=== PATIENT | male | born 1955 ===

== ENCOUNTER 2021-10-27 10:00 | Outpatient (CLI) | payer MEDICARE, SELFPAY | END 2021-10-27 10:01 | disposition home or self-care (01) | PROVIDERS: Visit Provider Urology | DX: R97.20 Elevated prostate specific antigen [PSA] (principal) | CPT/HCPCS: 36415; 81003; 84153 ==

== ENCOUNTER 2022-04-28 09:42 | Outpatient (CLI) | payer MEDICARE, SELFPAY | END 2022-04-28 09:43 | disposition home or self-care (01) | PROVIDERS: Visit Provider Urology | DX: N40.1 Benign prostatic hyperplasia with lower urinary tract symptoms (principal); N13.8 Other obstructive and reflux uropathy; R97.20 Elevated prostate specific antigen [PSA] | CPT/HCPCS: 51798; 81003; 84153; 99213 ==

== ENCOUNTER → 2022-10-27 07:43 | Outpatient (BNVA) | payer MEDICARE, SELFPAY | PROVIDERS: Visit Provider Urology | DX: N40.1 Benign prostatic hyperplasia with lower urinary tract symptoms (principal); R97.20 Elevated prostate specific antigen [PSA]; N13.8 Other obstructive and reflux uropathy | CPT/HCPCS: 99213 ==

== ENCOUNTER 2024-07-05 08:17 | Outpatient (CLI) | payer SELFPAY ==
[2024-07-05 09:10] LABS: Charge for UA Resulting for Rev
[2024-07-05 09:13] LABS: Basophils # 0.1 10^3/uL (0.0-0.1); Basophils % 0.7 %; Eosinophils # 0.2 10^3/uL (0.0-0.8); Hematocrit 42.3 % (37-53); Lymphocytes % 23.3 %; Mean Corpuscular HGB Conc 31.7 g/dL (30-55); Mean Corpuscular Hemoglobin 28.5 pg (27-33); Mean Corpuscular Volume 89.8 fl (82-101); Mean Platelet Volume 9.2 fL (7.4-10.4); Monocytes # 0.9 10^3/uL (0.2-0.9); Neutrophils # 5.51 10^3/uL (1.8-7.7); Neutrophils % 63.3 %; Nucleated Red Blood Cells % 0 %; Platelet Count 271 10^3/cmm (157-399); Red Blood Count 4.71 10^6/uL (3.85-5.65)
[2024-07-05 09:24] LABS: Bacteria Urine None Seen /hpf; Hyaline Casts Urine 0.81 /lpf; RBC Urine 0-2 /hpf (0-2); Squamous Epithelial Cell Urine 0-5 /hpf (0-5); WBC Urine 0-5 /hpf (0-5)
[2024-07-05 09:40] LABS: Anion Gap 19.9 (5-19); Blood Urea Nitrogen 49 mg/dL (8-23); Calcium 8.8 mg/dL (8.5-10.5); Carbon Dioxide 19 mmol/L (22-29); Chloride 105 mmol/L (98-107); Glomerular Filtration Rate 46.4 mL/min (90-130); Glucose 147 mg/dL (65-115); Osmolality Calculated 304 mOsm/kg (285-295); Potassium 4.9 mmol/L (3.5-5.1); Sodium 139 mmol/L (136-145)
[2024-07-05 11:37] LABS: Bilirubin Urine Negative (Negative); Blood Urine Negative (Negative); Glucose Urine UA 3+ (Normal); Ketones Urine Negative (Negative); Leukocyte Esterase Urine Negative (Negative); Nitrate Urine Negative (Negative); Protein Urine Negative (Negative); Specific Gravity, Urine 1.023 (1.005-1.030); Urine Color Yellow (Yellow); Urobilinogen Urine 0.2 mg/dL (Negative)
[2024-07-05 11:39] LABS: Urine Appearance Clear (CLEAR)
== END 2024-07-05 08:18 | disposition home or self-care (01) ==
LOC: LAB 08:23
PROVIDERS: PCP Urology; Visit Provider Urology
DX: Z01.818 Encounter for other preprocedural examination (principal); E11.9 Type 2 diabetes mellitus without complications
CPT/HCPCS: 36415; 80048; 81003; 81015; 85025

== ENCOUNTER → 2024-07-06 14:42 | Outpatient (BNVA) | payer MEDICARE, SELFPAY | PROVIDERS: PCP Urology; Visit Provider Internal Medicine | DX: Z01.818 Encounter for other preprocedural examination (principal); E11.9 Type 2 diabetes mellitus without complications | CPT/HCPCS: 93005 ==

== ENCOUNTER 2024-08-24 07:34 | Outpatient (CLI) | payer MEDICARE, SELFPAY ==
--- NOTE | 2024-08-24 08:12 | NM_ITS ---
WS: [id number] NUCLEAR MEDICINE WHOLE BODY BONE SCAN HISTORY: PROSTATE CA, LEFT hip pain with prior replacement. COMPARISON: LEFT hip 07/04/2018. TECHNIQUE: The patient was injected with 25.4 mCi of Technetium 99m HDP and serial whole-body scintig aspen have been performed with anterior and posterior images. Photopenic defect at the LEFT hip from the prior orthopedic replacement. There is no increased uptake . Normal appearance of the RIGHT hip and SI joints also. Moderate RIGHT and mild LEFT AC joint arthritis and bilateral SC joint arthropathy. Moderate bilatera l uptake involving the knees from arthritis. No rib abnormalities. There is a tiny focus of intermedi ate uptake involving the RIGHT 11th pedicle which is probably arthropathy. Normal soft tissue uptake. Kidneys are both identified. Additional degenerative changes involving the ankles. NM/NM bone scan whole body* [id number] IMPRESSION: 1. Distribution of abnormal uptake is most consistent with arthropathy. 2. No convincing pattern for metastatic bone disease. 3. No increased uptake at the LEFT hip.
== END 2024-08-24 07:35 | disposition home or self-care (01) ==
PROVIDERS: PCP Family Medicine; Visit Provider Urology
DX: C61 Malignant neoplasm of prostate (principal); M16.11 Unilateral primary osteoarthritis, right hip; Z96.642 Presence of left artificial hip joint
CPT/HCPCS: 78306; A9561

== ENCOUNTER 2024-11-21 11:23 | Outpatient (CLI) | payer MEDICARE, SELFPAY ==
--- NOTE | 2024-11-21 11:31 | XR_ITS ---
WS: [id number] CHEST 2 VIEWS HISTORY: wheezing COMPARISON: 12/07/2018 Lungs: New mild diffuse interstitial thickening and fullness in the hilar regions. Greater interstiti al thickening on the RIGHT. No dense areas of consolidation. Cardiac size: Normal. Mediastinum/Aorta: Normal mediastinum. Bones: Mild increase in thoracic kyphosis. XR/XR chest 2V* [id number] IMPRESSION: 1. Mild diffuse interstitial thickening but greatest throughout the RIGHT lung . Differential includes pneumonitis and mild asymmetric interstitial edema. The re is additional mild fullness in the hilar regions. Recommend follow-up chest radiograph after treatment for acute bronchitis. 2. No pneumonia.
== END 2024-11-21 11:24 | disposition home or self-care (01) ==
LOC: RAD 11:24
PROVIDERS: PCP Family Medicine; Visit Provider Family Medicine
DX: R06.02 Shortness of breath (principal); J84.9 Interstitial pulmonary disease, unspecified; R91.8 Other nonspecific abnormal finding of lung field; M40.294 Other kyphosis, thoracic region
CPT/HCPCS: 71046

== ENCOUNTER 2024-11-29 11:40 | Outpatient (CLI) | payer MEDICARE, SELFPAY ==
--- NOTE | 2024-11-29 11:43 | XR_ITS ---
WS: [id number] Chest 2 views, 11/29/2024 Clinical Data: WHEEZING Comparison: Two-view chest, 11/21/2024 Findings: No nodules, masses or effusions are seen. The heart is normal. The pulmonary vascularity is not increased. No pneumonia or pneumothorax is seen. The aortic arch shows mild tortuosity. XR/XR chest 2V* [id number] Impression: Atherosclerosis.
== END 2024-11-29 11:41 | disposition home or self-care (01) ==
LOC: RAD 11:41
PROVIDERS: PCP Family Medicine; Visit Provider Family Medicine
DX: J20.9 Acute bronchitis, unspecified (principal); I70.0 Atherosclerosis of aorta; Q25.46 Tortuous aortic arch
CPT/HCPCS: 71046

== ENCOUNTER 2024-12-06 06:55 | Outpatient (CLI) | payer MEDICARE, SELFPAY | END 2024-12-06 06:56 | disposition home or self-care (01) | PROVIDERS: PCP Family Medicine; Visit Provider Family Medicine | DX: R06.02 Shortness of breath (principal) | CPT/HCPCS: 94010; 94726; 94729 ==

== ENCOUNTER 2025-02-05 14:04 | Oncology outpatient (recurring) (ONCR) | payer MEDICARE, SELFPAY ==
--- NOTE | 2025-01-19 10:00 | N.ONRAD NP_ITS ---
Radiation Oncology New Patient Visit Patient: Alfredo Davidson MR#: [id number] : 1955 Age: 69 Sex: Male Dictated by: Dr. Clarisa Jensen Date of Service: 01/19/2025 Referring Physician(s) : Dr. Rivera Diagnosis: Adenocarcinoma the prostate Fedora score 7, 4+3, stage T2a Radiotherapy to date: Summary > No prior radiation therapy. Chief Complaint / History of Present Illness: Patient is a 69-year-old gentleman who originally was diagnosed with his prostate cancer through a biopsy that was done in July. He was found to have 2 of 16 biopsies positive for Fedora score 7 adenocarcinoma the prostate. Previously in June 2018 he had a PSA that was 5.6. In September 2018 it had increased to 7.4 and he was part placed on finasteride. Since that time his PSA has continued to climb to the most recent PSA which was 6.5 which is approximately equivalent to 13 he had his biopsy done and then actually was on the operating table to have a radical prostatectomy mid November. Secondary to his pulmonary function he was not able to have the surgery. He is here today in consultation to discuss the radiation option. He has had SpaceOAR and fiducials placed. He is IPSS score is 12 Current Medications: Aspirin, Farxiga, stool softener, Jardiance, finasteride, gabapentin, hydrochlorothiazide, lisinopril, low-dose statin, metformin, Flomax Allergies: Naproxen Medical History: BPH, diabetes, ED, hyperlipidemia, hypertension Surgical History: Left hip replacement Family History: Noncontributory Social History: Lives with his about [place] [address] out of town. Non-smoker nondrinker Current Complaints / Review of Systems: . Symptoms related to urgency and hesitancy of urination with an IPSS score of 12 Vital Signs: Performed on 01/19/2025 8:57 AM BMI - 36.979 kg/m2 (high), Height - 68 in, Weight - 243.2 lbs, Temperature - 97.4 f, Pulse - 88 /min, Respiration - 16 /min, O2 Sat - 97 %, Pain - 0, Fatigue - 0 and BP - 147/ 81 mm(hg)(high/). Physical Exam: General: Patient is in no apparent distress. He is companied by 2 twin great granddaughters and his HEENT: Normocephalic atraumatic. Pupils are equal, sclera clear, extraocular muscles intact Pulmonary: Respiratory is regular nonlabored Cardiovascular: Regular rate and rhythm Abdomen: Markedly protuberant android pattern Extremities: Without obvious upper or lower extremity lymphedema Skin: Warm and dry Neurological: Alert and orient x 3. Gait and speech within normal limits Psych: Affect appropriate for current situation Performance Status: 100 Pathology: Lab: Imaging: See HPI Impression: Adenocarcinoma the prostate Fedora score 7 PSA currently pending Plan: At this point we talked about his diagnosis. We reviewed how he was not really a surgical candidate because of his overall respiratory status. We talked about the radiation as a equivalent option. We discussed the simulation process. We reviewed the risks and side effects both acute and long-term. All of his questions were answered. This point he is agreed to proceed. He will return next week to undergo simulation and will begin his treatment shortly thereafter. Plan for a 5 and half week course of treatment. Signed by: 01/19/2025 9:58:37 AM <<Signature on File>> Time spent on patient:45 CPT Code: * CPT Code: *
--- NOTE | 2025-01-30 14:04 | ONCRAD TMN_ITS ---
Radiation Oncology Weekly Treatment Management Patient: Alfredo Davidson MR#: [id number] : 1955 Attending Physician: Dr. Clarisa Jensen Date of Service: 01/30/2025 Fractions: 4 out of 28 Referring Physician(s) : Diagnosis: C61 - Malignant neoplasm of prostate, Diagnosed 01/22/2025 (Active) Radiotherapy to date: Course: prostate/sv, Treatment Site: [id number], Ref. ID: [id number], Energy: 6X, Dose/Fx (cGy): 250, #Fx: , Dose Correction (cGy): 0, Total Dose Delivered (cGy): 1,000, Start Date: 01/25/2025, Elapsed Days: 5 Reason for visit: The patient is being seen today as part of their regularly scheduled weekly on treatment visits to assess for acute toxicities from radiotherapy. Review of Systems: Patient denies any changes in bowel or bladder habits. Vital Signs: Performed on 01/30/2025 1:36 PM BMI - 38.378 kg/m2 (high), Height - 68 in, Weight - 252.4 lbs, Temperature - 97.3 f, Pulse - 92 /min, Respiration - 20 /min, O2 Sat - 94 % (low), Pain - 0, Fatigue - 0 and BP - 133/ 71 mm(hg). Physical Exam: No changes on exam Imaging: Radiation therapy imaging related to accurate target localization (i.e. KV, MV and CBCT) was reviewed. Appropriate changes, if any, were made to ensure treatment accuracy. Plan: Will continue with treatments as planned Signed by: Dr. Clarisa Jensen 01/30/2025 2:03:19 PM
== END 2025-02-05 23:59 | disposition home or self-care (01) ==
PROVIDERS: PCP Family Medicine; Visit Provider Radiology Radiation Oncology
DX: Z51.0 Encounter for antineoplastic radiation therapy (principal); C61 Malignant neoplasm of prostate
CPT/HCPCS: 36415; 77300; 77301; 77334; 77336; 77338; 77385; 84153; 99024; 99205

== ENCOUNTER 2025-02-27 14:13 | Oncology outpatient (recurring) (ONCR) | payer MEDICARE, SELFPAY ==
--- NOTE | 2025-02-06 14:48 | ONCRAD TMN_ITS ---
Radiation Oncology Weekly Treatment Management Patient: Lety Bowman MR#: [id number] : 1955> Attending Physician: Dr. Clarisa Jensen Date of Service: 02/06/2025 Fractions: 9 out of 28 Referring Physician(s) : Diagnosis: C61 - Malignant neoplasm of prostate, Diagnosed 01/22/2025 (Active) Radiotherapy to date: Course: prostate/sv, Treatment Site: [id number], Ref. ID: [id number], Energy: 6X, Dose/Fx (cGy): 250, #Fx: , Dose Correction (cGy): 0, Total Dose Delivered (cGy): 2,250, Start Date: 01/25/2025, Elapsed Days: 12 Reason for visit: The patient is being seen today as part of their regularly scheduled weekly on treatment visits to assess for acute toxicities from radiotherapy. Review of Systems: Patient has may be slightly more frequent stools Vital Signs: Performed on 02/06/2025 2:04 PM BMI - 37.709 kg/m2 (high), Height - 68 in, Weight - 248 lbs, Temperature - 97.7 f, Pulse - 99 /min, Respiration - 18 /min, O2 Sat - 93 % (low), Pain - 0, Fatigue - 0 and BP - 106/ 64 mm(hg)(/low). Physical Exam: No changes on exam Imaging: Radiation therapy imaging related to accurate target localization (i.e. KV, MV and CBCT) was reviewed. Appropriate changes, if any, were made to ensure treatment accuracy. Plan: The swelling he had on his lip yesterday is gone down. He does say that he actually has easier bowel movements now. He has had no changes in urinary habits. Will continue with treatments as planned Signed by: Dr. Clarisa Jensen 02/06/2025 2:46:25 PM
--- NOTE | 2025-02-20 15:05 | ONCRAD TMN_ITS ---
Radiation Oncology Weekly Treatment Management Patient: Lety Bowman MR#: [id number] : 1955> Attending Physician: Nick Pearson Date of Service: 02/20/2025 Referring Physician(s) : Diagnosis: C61 - Malignant neoplasm of prostate, Diagnosed 01/22/2025 (Active) Radiotherapy to date: Course: prostate/sv, Treatment Site: [id number], Ref. ID: [id number], Energy: 6X, Dose/Fx (cGy): 250, #Fx: , Dose Correction (cGy): 0, Total Dose Delivered (cGy): 4,500, Start Date: 01/25/2025, Elapsed Days: 26 Reason for visit: The patient is being seen today as part of their regularly scheduled weekly on treatment visits to assess for acute toxicities from radiotherapy. Review of Systems: Minimal diarrhea probably secondary to stool softeners which she is going put on hold at this time. Patient denies any blood in the urine, blood in the stool, constipation, or new bony tenderness. Vital Signs: Performed on 02/20/2025 2:26 PM BMI - 37.891 kg/m2 (high), Height - 68 in, Weight - 249.2 lbs, Temperature - 98 f, Pulse - 83 /min, Respiration - 18 /min, O2 Sat - 96 %, Pain - 0, Fatigue - 0 and BP - 138/ 80 mm(hg). Physical Exam: AAOx3. Skin intact. Imaging: Radiation therapy imaging related to accurate target localization (i.e. KV, MV and CBCT) was reviewed. Appropriate changes, if any, were made to ensure treatment accuracy. Plan: Continue XRT Hold stool softeners at this time. Signed by: Nick Pearson 02/20/2025 3:04:08 PM
--- NOTE | 2025-02-27 16:58 | ONCRAD TMN_ITS ---
Radiation Oncology Weekly Treatment Management Patient: Alfredo Davidson MR#: [id number] : 1955 Attending Physician: Dr. López Smith Date of Service: 02/27/2025 Referring Physician(s) : Diagnosis: C61 - Malignant neoplasm of prostate, Diagnosed 01/22/2025 (Active) Radiotherapy to date: Course: prostate/sv, Treatment Site: [id number], Ref. ID: [id number], Energy: 6X, Dose/Fx (cGy): 250, #Fx: , Dose Correction (cGy): 0, Total Dose Delivered (cGy): 5,750, Start Date: 01/25/2025, Elapsed Days: 33 Reason for visit: The patient is being seen today as part of their regularly scheduled weekly on treatment visits to assess for acute toxicities from radiotherapy. Review of Systems: No change in urination. 2 x nocturia. Flow is ok. Stool soft and now off of stool softener. Now off of finasteride. Vital Signs: Performed on 02/27/2025 2:46 PM BMI - 38.469 kg/m2 (high), Height - 68 in, Weight - 253 lbs, Temperature - 97.8 f, Pulse - 94 /min, Respiration - 20 /min, O2 Sat - 97 %, Pain - 0, Fatigue - 0 and BP - 121/ 73 mm(hg). Physical Exam: Imaging: Radiation therapy imaging related to accurate target localization (i.e. KV, MV and CBCT) was reviewed. Appropriate changes, if any, were made to ensure treatment accuracy. Plan: Good tolerance of treatment. Continue as planned. Signed by: Dr. López Smith 02/27/2025 4:57:43 PM
== END 2025-02-27 23:59 | disposition home or self-care (01) ==
PROVIDERS: PCP Family Medicine; Visit Provider Radiology Radiation Oncology
DX: Z51.0 Encounter for antineoplastic radiation therapy (principal); C61 Malignant neoplasm of prostate
CPT/HCPCS: 77336; 77385; 99024

== ENCOUNTER 2025-03-06 14:09 | Oncology outpatient (recurring) (ONCR) | payer MEDICARE, SELFPAY ==
--- NOTE | 2025-03-06 17:06 | N.ONRD TS_ITS ---
Radiation Oncology Treatment Summary Patient: Lety>Gracie MR#: [id number] : 1955> Age: 69> Sex: Male Dictated by: Nick Pearson Date of Service: 03/06/2025 Referring Physician(s) : Diagnosis: C61 - Malignant neoplasm of prostate, Diagnosed 01/22/2025 (Active) Pertinent HX: : Patient is a 69-year-old gentleman who originally was diagnosed with his prostate cancer through a biopsy that was done in July. He was found to have 2 of 16 biopsies positive for Polv[place] score 7 adenocarcinoma the prostate. Previously in June 2018 he had a PSA that was 5.6. In September 2018 it had increased to 7.4 and he was part placed on finasteride. Since that time his PSA has continued to climb to the most recent PSA which was 6.5 which is approximately equivalent to 13 he had his biopsy done and then actually was on the operating table to have a radical prostatectomy mid November. Secondary to his pulmonary function he was not able to have the surgery. He is here today in consultation to discuss the radiation option. He has had SpaceOAR and fiducials placed. He is IPSS score is 12 Radiotherapy to Date: Course: prostate/sv, Treatment Site: [id number], Ref. ID: [id number], Energy: 6X, Dose/Fx (cGy): 250, #Fx: 28 / 28, Dose Correction (cGy): 0, Total Dose Delivered (cGy): 7,000, Start Date: 01/25/2025, End Date: 03/06/2025, Elapsed Days: 40 Clinical Summary: The patient tolerated RT well. No voice complaints at end of treatment. Plan: End of treatment today. Continue on the above medication until the skin reaction resolves. Follow up in one month or sooner if need be. PSA in 3 months. Signed by: Nick Pearson>03/06/2025 5:04:13 PM <<Signature on File>>
== END 2025-03-07 23:59 | disposition home or self-care (01) ==
PROVIDERS: PCP Family Medicine; Visit Provider Radiology Radiation Oncology
DX: Z51.0 Encounter for antineoplastic radiation therapy (principal); C61 Malignant neoplasm of prostate
CPT/HCPCS: 77336; 77385; 99024

== ENCOUNTER 2025-04-04 10:12 | Oncology outpatient (recurring) (ONCR) | payer MEDICARE, SELFPAY ==
--- NOTE | 2025-04-04 10:51 | ONCRAD EPV_ITS ---
Radiation Oncology Established Patient Visit Patient: Lety Fuentes [id number] : 1955> Age: 70> Sex: Male> Dictated by: Nick Pearson Date of Service: 04/04/2025 Referring Physician(s) : Diagnosis: C61 - Malignant neoplasm of prostate, Diagnosed 01/22/2025 (Active) Radiotherapy to Date: Course: prostate/sv Treatment Site: [id number] Ref. ID: [id number] Energy: 6X Dose/Fx (cGy): 250 #Fx: Dose Correction (cGy): 0 Total Dose Delivered (cGy): 7,000 Start Date: 01/25/2025 End Date: 03/06/2025 Elapsed Days: 40 Current History: Current Medications: Nursing Notes Allergies: Nursing Notes Current Complaints / Review of Systems: . Patient here for first follow-up since definitive XRT to the prostate and seminal vesicles. Patient received a total dose of 7000 cGy in 28 fractions completing this on 03/06/2025. Patient denies any blood in the urine, blood in the stool, diarrhea, constipation, or new bony tenderness. Vital Signs: Performed on 04/04/2025 10:29 AM BMI - 38.134 kg/m2 (high), Height - 68 in, Weight - 250.8 lbs, Temperature - 97.1 f, Pulse - 89 /min, Respiration - 18 /min, O2 Sat - 96 %, Pain - 0, Fatigue - 0 and BP - 143/ 85 mm(hg)(high/). Physical Exam: AAO x3. Skin intact. General: Alert and oriented x 3. No acute distress. HEENT: Normocephalic, atraumatic. Extraocular Movements Intact: Pupils Equal, Round, Reactive to Light and Accommodation: Sclerae anicteric. Oral cavity is clear without lesions, masses or ulcers. NECK: Supple without supraclavicular or jugular lymphadenopathy. LUNGS: Clear to auscultation bilaterally without rales, rhonchi or wheeze. HEART: Regular rate and rhythm, normal S1 and S2 without murmur, gallop or rub. MUSCULOSKELETAL: No tenderness or percussion pain over the axial skeleton, scapulae or pelvis. ABDOMEN: Soft, nontender, nondistended without masses or organomegaly. Bowell sounds are present. EXTREMITIES: No peripheral edema is identified. Limited motor and sensory examination are grossly intact and symmetric bilaterally. NEUROLOGIC: Cranial nerves II ???XII are grossly intact. Normal sensation, strength 5/5 in all extremities, normal gait, no ataxia. Performance Status: KPS 90 Lab: None pending. Pathology: Primary, c61 - malignant neoplasm of prostate, Diagnosed 01/22/2025 (active) . Imaging: See HPI Impression: Intermediate risk prostate cancer-GS 7 PLAN: Stable prostate cancer PSA in 3 months with order signed RTC June 06, 2025 at 0930 hrs. or sooner if need be. Signed by: 04/04/2025 10:50:06 AM <<Signature on File>> Time spent with patient: 20 minutes-no charge Global treatment timing CPT Code: CPT Code:
== END 2025-04-07 23:59 | disposition home or self-care (01) ==
PROVIDERS: PCP Family Medicine; Visit Provider Radiology Radiation Oncology
DX: Z08 Encounter for follow-up examination after completed treatment for malignant neoplasm (principal); C61 Malignant neoplasm of prostate; Z92.3 Personal history of irradiation
CPT/HCPCS: 77336; 99024

== ENCOUNTER 2025-06-06 09:27 | Oncology outpatient (recurring) (ONCR) | payer MEDICARE, SELFPAY ==
[2025-06-06 10:14] LABS: Prostate Specific Antigen 1.650 ng/mL (0-4)
--- NOTE | 2025-06-06 10:36 | ONCRAD EPV_ITS ---
Radiation Oncology Established Patient Visit Patient: Alfredo Davidson [id number] : 1955 Age: 70 Sex: Male Dictated by: Dr. Nick Pearson Date of Service: 06/06/2025 Referring Physician(s) : Diagnosis: C61 - Malignant neoplasm of prostate, Diagnosed 01/22/2025 (Active) Radiotherapy to Date: Course: prostate/sv, Treatment Site: [id number], Ref. ID: [id number], Energy: 6X, Dose/Fx (cGy): 250, #Fx: 28 / 28, Dose Correction (cGy): 0, Total Dose Delivered (cGy): 7,000, Start Date: 01/25/2025, End Date: 03/06/2025, Elapsed Days: 40 HX: Patient is a 69-year-old gentleman who originally was diagnosed with his prostate cancer through a biopsy that was done in July. He was found to have 2 of 16 biopsies positive for Robbie score 7 adenocarcinoma the prostate. Previously in June 2018 he had a PSA that was 5.6. In September 2018 it had increased to 7.4 and he was part placed on finasteride. Since that time his PSA has continued to climb to the most recent PSA which was 6.5 which is approximately equivalent to 13 he had his biopsy done and then actually was on the operating table to have a radical prostatectomy mid November. Secondary to his pulmonary function he was not able to have the surgery. He is here today in consultation to discuss the radiation option. He has had SpaceOAR and fiducials placed. He is IPSS score is 12 Current History: This is a pleasant 70-year-old male who is now 3 months from definitive XRT. He denies any blood in the urine, blood in the stool, diarrhea, constipation, or new bony tenderness. PSA TABLE: 06/2018- 5.6 09/2018- 7.4 01/25/25- 9.270 06/06/25- 1.65 1st since XRT Current Medications: Aspirin, Farxiga, stool softener, Jardiance, finasteride, gabapentin, hydrochlorothiazide, lisinopril, low-dose statin, metformin, Flomax Allergies: Naproxen Current Complaints / Review of Systems: . Vital Signs: Performed on 06/06/2025 10:16 AM BMI - 38.013 kg/m2 (high), Height - 68 in, Weight - 250 lbs, Temperature - 97.3 f, Pulse - 84 /min, Respiration - 18 /min, O2 Sat - 94 % (low), Pain - 0, Fatigue - 0 and BP - 107/ 70 mm(hg). Physical Exam: General: Alert and oriented x 3. No acute distress. HEENT: Normocephalic, atraumatic. Extraocular Movements Intact: Pupils Equal, Round, Reactive to Light and Accommodation: Sclerae anicteric. Oral cavity is clear without lesions, masses or ulcers. NECK: Supple without supraclavicular or jugular lymphadenopathy. LUNGS: Clear to auscultation bilaterally without rales, rhonchi or wheeze. HEART: Regular rate and rhythm, normal S1 and S2 without murmur, gallop or rub. MUSCULOSKELETAL: No tenderness or percussion pain over the axial skeleton, scapulae or pelvis. ABDOMEN: Soft, nontender, nondistended without masses or organomegaly. Bowell sounds are present. EXTREMITIES: No peripheral edema is identified. Limited motor and sensory examination are grossly intact and symmetric bilaterally. NEUROLOGIC: Cranial nerves II ???XII are grossly intact. Normal sensation, strength 5/5 in all extremities, normal gait, no ataxia. Performance Status: KPS 90 Lab: None pending. Pathology: Primary, c61 - malignant neoplasm of prostate, Diagnosed 01/22/2025 (active) . Imaging: See HPI Impression: GS 7 Prostate Cancer PLAN: RTC in 3 months on 08/29/2025 at 0900 hrs. or sooner if need be PSA prior to follow-up Signed by: 06/06/2025 10:34:39 AM <<Signature on File>> Time spent with patient: 20 minutes CPT Code: CPT Code:
== END 2025-06-07 23:59 | disposition home or self-care (01) ==
PROVIDERS: PCP Family Medicine; Visit Provider Radiology Radiation Oncology
DX: R97.20 Elevated prostate specific antigen [PSA] (principal)
CPT/HCPCS: 36415; 84153

== ENCOUNTER 2025-08-29 08:29 | Oncology outpatient (recurring) (ONCR) | payer MEDICARE, SELFPAY ==
[2025-08-29 09:10] LABS: Prostate Specific Antigen 1.150 ng/mL (0-4)
--- NOTE | 2025-08-29 09:13 | ONCRAD EPV_ITS ---
Radiation Oncology Established Patient Visit Patient: Alfredo Davidson [id number] : 1955 Age: 70 Sex: Male Dictated by: Nick Pearson Date of Service: 08/29/2025 Referring Physician(s) : Dr. Carvalho Diagnosis: C61 - Malignant neoplasm of prostate, Diagnosed 01/22/2025 (Active) Radiotherapy to Date: Course: prostate/sv, Treatment Site: [id number], Ref. ID: [id number], Energy: 6X, Dose/Fx (cGy): 250, #Fx: , Dose Correction (cGy): 0, Total Dose Delivered (cGy): 7,000, Start Date: 01/25/2025, End Date: 03/06/2025, Elapsed Days: 40 Current History: HX: Patient is a 69-year-old gentleman who originally was diagnosed with his prostate cancer through a biopsy that was done in July. He was found to have 2 of 16 biopsies positive for Mableton score 7 adenocarcinoma the prostate. Previously in June 2018 he had a PSA that was 5.6. In September 2018 it had increased to 7.4 and he was part placed on finasteride. Since that time his PSA has continued to climb to the most recent PSA which was 6.5 which is approximately equivalent to 13 he had his biopsy done and then actually was on the operating table to have a radical prostatectomy mid November. Secondary to his pulmonary function he was not able to have the surgery. He is here today in consultation to discuss the radiation option. He has had SpaceOAR and fiducials placed. He is IPSS score is 12 Current Medications: Aspirin 81mg, Dapagliflozin propanediol 5mg, Docusate sodium 100mg, empagliflozin 10mg, finasteride 5mg, gabapentin 300mg, hydrochlorothiazide 25mg, lisinopril 10mg, lovastatin 10mg, metformin 500mg, terazosin 5mg Allergies: Naproxen Current Complaints / Review of Systems: Patient here for 6-month follow-up. This is a pleasant 70-year-old male now 6 months from definitive XRT. He denies any blood in the urine, blood in the stool, diarrhea, constipation, or new bony tenderness. PSA TABLE: 06/2018- 5.6 09/2018- 7.4 01/25/25- 9.270 06/06/25- 1.65 1st since XRT 08/29/2025 -1.150 Vital Signs: Performed on 08/29/2025 8:44 AM BMI - 37.587 kg/m2 (high), Height - 68 in, Weight - 247.2 lbs, Temperature - 96.7 f, Pulse - 80 /min, Respiration - 17 /min, O2 Sat - 100 %, Pain - 0, Fatigue - 0 and BP - 133/ 83 mm(hg). Physical Exam: General: Alert and oriented x 3. No acute distress. HEENT: Normocephalic, atraumatic. Extraocular Movements Intact: Pupils Equal, Round, Reactive to Light and Accommodation: Sclerae anicteric. Oral cavity is clear without lesions, masses or ulcers. NECK: Supple without supraclavicular or jugular lymphadenopathy. LUNGS: Clear to auscultation bilaterally without rales, rhonchi or wheeze. HEART: Regular rate and rhythm, normal S1 and S2 without murmur, gallop or rub. MUSCULOSKELETAL: No tenderness or percussion pain over the axial skeleton, scapulae or pelvis. ABDOMEN: Soft, nontender, nondistended without masses or organomegaly. Bowell sounds are present. EXTREMITIES: No peripheral edema is identified. Limited motor and sensory examination are grossly intact and symmetric bilaterally. NEUROLOGIC: Cranial nerves II ???XII are grossly intact. Normal sensation, strength 5/5 in all extremities, normal gait, no ataxia. Performance Status: KPS 90 Lab: PSA 08/29/2025- 1.150 Pathology: Primary, c61 - malignant neoplasm of prostate, Diagnosed 01/22/2025 (active) . Imaging: See HPI Impression: CA of the PROSTATE LOY via PSA PLAN: RTC in 3 months PSA prior to next visit Signed by: 08/29/2025 10:03:08 AM <<Signature on File>> Time spent with patient: 20 minutes CPT Code: CPT Code:
== END 2025-09-07 23:59 | disposition home or self-care (01) ==
PROVIDERS: PCP Family Medicine; Visit Provider Radiology Radiation Oncology
DX: C61 Malignant neoplasm of prostate (principal); R97.20 Elevated prostate specific antigen [PSA]
CPT/HCPCS: 36415; 84153; 99213; 99214